=== PATIENT | male | born 1975 | race Caucasian/White ===

== ENCOUNTER → 2016-08-24 | Outpatient (CLI) | payer SELFPAY ==
[2016-08-24 17:45] LABS: ABSOLUTE EOSINOPHILS # (AUTO) 0.2 10^3/uL (0.0-0.6); ABSOLUTE LYMPHOCYTES (AUTO) 2.2 10^3/uL (0.5-4.7); ABSOLUTE MONOCYTES (AUTO) 0.3 10^3/uL (0.1-1.4); ABSOLUTE NEUT (AUTO) 3.9 10^3/uL (1.7-8.2); BASOPHILS % (AUTO) 0.6 % (0-2); EOSINOPHILS % (AUTO) 2.5 % (0-6); HEMATOCRIT 43.2 % (37.9-51.0); HEMOGLOBIN 14.7 g/dL (13.5-17.0); HGB HCT DIFFERENCE 0.9; LYMPHOCYTES % (AUTO) 33.7 % (13-45); MEAN CORPUSCULAR HGB CONC 34.1 g/dL (32.0-36.0); MEAN CORPUSCULAR VOLUME 91 fl (80-97); MONOCYTES % (AUTO) 4.6 % (3-13); RED BLOOD COUNT 4.75 10^6/uL (4.35-5.55); SEGMENTED NEUTROPHILS % (AUTO) 58.6 % (42-78); WHITE BLOOD COUNT 6.6 10^3/uL (4.0-10.5)
[2016-08-24 17:58] LABS: APPEARANCE,URINE CLEAR; BILIRUBIN,URINE NEGATIVE (NEGATIVE); GLUCOSE, URINE NEGATIVE (NEGATIVE); KETONES,URINE NEGATIVE (NEGATIVE); LEUKOCYTE ESTERASE,URINE NEGATIVE (NEGATIVE); NITRITE,URINE NEGATIVE (NEGATIVE); PROTEIN,URINE NEGATIVE (NEGATIVE); URINE SPECIFIC GRAVITY 1.014; UROBILINOGEN,URINE NEGATIVE mg/dL (<2.0)
[2016-08-24 17:59] LABS: BACTERIA,URINE TRACE /HPF; RBC,URINE NONE SEEN /HPF; WBC,URINE NONE SEEN /HPF
[2016-08-24 18:12] LABS: ALANINE AMINOTRANSFERASE 23 U/L (21-72); ALBUMIN 4.4 g/dL (3.5-5.0); ALKALINE PHOSPHATASE 62 U/L (38-126); ANION GAP 12 (5-19); ASPARTATE AMINO TRANSFERASE 17 U/L (17-59); BILIRUBIN,DIRECT 0.3 mg/dL (0.0-0.4); BILIRUBIN,TOTAL 0.6 mg/dL (0.2-1.3); BLOOD UREA NITROGEN 7 mg/dL (7-20); CALCIUM 9.6 mg/dL (8.4-10.2); CARBON DIOXIDE 27 mmol/L (22-30); CHLORIDE 105 mmol/L (98-107); GLUCOSE 85 mg/dL (75-110); POTASSIUM 3.8 mmol/L (3.6-5.0); SODIUM 144.1 mmol/L (137-145); TOTAL PROTEIN 7.2 g/dL (6.3-8.2)
== END ==
LOC: OD 16:28
PROVIDERS: ATTEND Surgery
DX: R19.7 Diarrhea, unspecified (principal); R10.31 Right lower quadrant pain; R30.9 Painful micturition, unspecified
CPT/HCPCS: 36415; 80053; 81001; 84550; 85025

== ENCOUNTER 2016-10-06 11:54 | Emergency (ER) | payer SELFPAY ==
[2016-10-06 12:02] VITALS: BP 140/87
--- NOTE | 2016-10-06 13:11 | ER Document Report ---
HPI - HPI Patient complains to provider of: bilat thigh pain, swelling Onset: Other - 1 month Onset/Duration: Persistent Quality of pain: Achy Pain Level: 4 Context: Patient presents complaining of bilateral thigh muscle tenderness and swelling for the past month. Patient states that he fell out of his vehicle while it was parked in his yard. Patient states since then he has had thigh muscle pain and swelling. Patient states that he lives in [facility] and has attempted to use the free clinics in that [facility] but has been told to follow-up with primary doctor or an orthopedic doctor for this complaint and states that he has not gotten anywhere as he does not currently have any insurance. Patient denies any new injury. Patient states that he is homeless but he does have a vehicle and wanted to come here to see if there is anything that can be done about his thigh muscle pain. Associated Symptoms: Other - Bilateral thigh muscle pain and swelling. denies: Chest pain, Nonproductive cough, Productive cough, Fever Exacerbated by: Denies Relieved by: Denies Similar symptoms previously: No Recently seen / treated by doctor: Yes - ROS ROS below otherwise negative: Yes Systems Reviewed and Negative: Yes All other systems reviewed and negative - CONSTITUTIONAL Constitutional: DENIES: Fever, Chills - NEURO Neurology: DENIES: Weakness - CARDIOVASCULAR Cardiovascular: DENIES: Chest pain - RESPIRATORY Respiratory: DENIES: Trouble Breathing, Coughing - MUSCULOSKELETAL Musculoskeletal: REPORTS: Extremity pain, Swelling - DERM Skin Color: Normal Skin Problems: None Past Medical History - General Information source: Patient - Social History Smoking Status: Current Every Day Smoker Frequency of alcohol use: None Drug Abuse: Marijuana Occupation: None Lives with: Homeless Family History: Reviewed & Not Pertinent Renal/ Medical History: Denies: Hx Peritoneal Dialysis Musculoskeltal Medical History: Reports Other - Chronic back pain Past Surgical History: Reports: Hx Orthopedic Surgery - Immunizations Hx Diphtheria, Pertussis, Tetanus Vaccination: Yes Vertical Provider Document - CONSTITUTIONAL Agree With Documented VS: Yes Exam Limitations: No Limitations General Appearance: WD/WN, No Apparent Distress - INFECTION CONTROL TRAVEL OUTSIDE OF THE [place] IN LAST 30 DAYS: No - HEENT HEENT: Atraumatic, Normocephalic - NECK Neck: Normal Inspection, Supple - RESPIRATORY Respiratory: Breath Sounds Normal, No Respiratory Distress, Chest Non-Tender O2 Sat by Pulse Oximetry: 99 - CARDIOVASCULAR Cardiovascular: Regular Rate, Regular Rhythm, No Murmur - GI/ABDOMEN Gastrointestinal: Abdomen Soft, Abdomen Non-Tender - BACK Back: Normal Inspection - MUSCULOSKELETAL/EXTREMETIES Musculoskeletal/Extremeties: MAEW, FROM, No Edema Notes: Patient without any objective signs of swelling or inflammation to bilateral thighs - NEURO Level of Consciousness: Awake, Alert, Appropriate Motor/Sensory: No Motor Deficit - DERM Integumentary: Warm, Dry Course - Vital Signs Vital signs: Temp Pulse Resp BP Pulse Ox 97.5 F 63 16 140/87 H 99 10/06/16 12:01 10/06/16 12:01 10/06/16 12:01 10/06/16 12:01 10/06/16 12:01 - Laboratory Result Diagrams: 10/06/16 13:27 10/06/16 13:27 Laboratory results interpreted by me: 10/06/16 14:29 Labs- Entire Visit 10/06/16 10/06/16 13:27 13:27 WBC 7.2 RBC 4.62 Hgb 14.8 Hct 42.7 MCV 92 MCH 32.0 MCHC 34.7 RDW 13.0 Plt Count 199 Seg Neutrophils % 63.2 Lymphocytes % 28.4 Monocytes % 4.9 Eosinophils % 2.8 Basophils % 0.7 Absolute Neutrophils 4.5 Absolute Lymphocytes 2.0 Absolute Monocytes 0.4 Absolute Eosinophils 0.2 Absolute Basophils 0.1 Sodium 143.7 Potassium 3.9 Chloride 107 Carbon Dioxide 25 Anion Gap 12 BUN 13 Creatinine 0.81 Est GFR ( Amer) > 60 Est GFR (Non-Af Amer) > 60 Glucose 88 Calcium 9.5 Total Bilirubin 0.4 Direct Bilirubin 0.3 Indirect Bilirubin Not Reportable Neonat Total Bilirubin Not Reportable AST 16 L ALT 30 Alkaline Phosphatase 65 Creatine Kinase 102 Total Protein 7.2 Albumin 4.3 10/06/16 21:41 Discharge - Discharge Clinical Impression: Elevated blood pressure reading, Myalgia Condition: Stable Disposition: HOME, SELF-CARE Instructions: Myalagia (Muscle Pain) ([facility]) Additional Instructions: Return immediately for any new or worsening symptoms Followup with your primary care provider, call tomorrow to make a followup appointment Prescriptions: Naproxen [Naprosyn 250 Nmg Tablet] 1 tab PO BID #14 tablet Forms: Elevated Blood Pressure Referrals: [facility] [Provider Group] - Follow up as needed [facility] [Provider Group] - Follow up as needed
[2016-10-06 13:41] LABS: ABSOLUTE BASOPHILS # (AUTO) 0.1 10^3/uL (0.0-0.2); ABSOLUTE EOSINOPHILS # (AUTO) 0.2 10^3/uL (0.0-0.6); ABSOLUTE MONOCYTES (AUTO) 0.4 10^3/uL (0.1-1.4); ABSOLUTE NEUT (AUTO) 4.5 10^3/uL (1.7-8.2); BASOPHILS % (AUTO) 0.7 % (0-2); EOSINOPHILS % (AUTO) 2.8 % (0-6); HEMATOCRIT 42.7 % (37.9-51.0); HEMOGLOBIN 14.8 g/dL (13.5-17.0); HGB HCT DIFFERENCE 1.7; LYMPHOCYTES % (AUTO) 28.4 % (13-45); MEAN CORPUSCULAR HGB CONC 34.7 g/dL (32.0-36.0); MEAN CORPUSCULAR VOLUME 92 fl (80-97); MONOCYTES % (AUTO) 4.9 % (3-13); RED BLOOD COUNT 4.62 10^6/uL (4.35-5.55); SEGMENTED NEUTROPHILS % (AUTO) 63.2 % (42-78); WHITE BLOOD COUNT 7.2 10^3/uL (4.0-10.5)
[2016-10-06 14:10] LABS: ALANINE AMINOTRANSFERASE 30 U/L (21-72); ALBUMIN 4.3 g/dL (3.5-5.0); ALKALINE PHOSPHATASE 65 U/L (38-126); ANION GAP 12 (5-19); ASPARTATE AMINO TRANSFERASE 16 U/L (17-59); BILIRUBIN,DIRECT 0.3 mg/dL (0.0-0.4); BILIRUBIN,TOTAL 0.4 mg/dL (0.2-1.3); BLOOD UREA NITROGEN 13 mg/dL (7-20); CALCIUM 9.5 mg/dL (8.4-10.2); CARBON DIOXIDE 25 mmol/L (22-30); CHLORIDE 107 mmol/L (98-107); CREATINE KINASE 102 U/L (55-170); CREATININE RESULT 0.81 mg/dL (0.52-1.25); GLUCOSE 88 mg/dL (75-110); POTASSIUM 3.9 mmol/L (3.6-5.0); SODIUM 143.7 mmol/L (137-145); TOTAL PROTEIN 7.2 g/dL (6.3-8.2)
== END 2016-10-06 14:48 | disposition home or self-care (01) ==
LOC: ER 11:54
DX: R03.0 Elevated blood-pressure reading, without diagnosis of hypertension (principal); M79.1 Myalgia; F17.200 Nicotine dependence, unspecified, uncomplicated; G89.29 Other chronic pain; M54.9 Dorsalgia, unspecified
CPT/HCPCS: 36415; 80053; 82550; 85025; 99283

== ENCOUNTER 2017-08-21 00:18 | Emergency (ER) | payer SELFPAY ==
[2017-08-21 00:33] VITALS: BP 143/102
--- NOTE | 2017-08-21 01:40 | RADIOLOGY REPORT (SQ) ---
EXAM DESCRIPTION: XR WRIST 3 OR MORE VIEWS BILATERAL CLINICAL HISTORY: 41 years Male, twisted right and left wrist while in handcuffs COMPARISON: None. Findings: Mild osteoarthritis. Likely benign 0.8 cm low-attenuation lesion of the right capitate may indicate an enchondroma.. Bones, joints, and soft tissues of the XR WRIST 6 VIEWS BILATERAL appear otherwise intact. IMPRESSION: No acute findings.
[2017-08-21] MEDS ORDERED: IBUPROFEN 600 MG TABLET PO ONE (02:24)
--- NOTE | 2017-08-21 02:24 | ER Document Report ---
ED General - General Chief Complaint: Wrist Pain Stated Complaint: WRIST PAIN Time Seen by Provider: 08/21/17 01:06 Notes: Patient is a 41 year old male who presents in the custody of [facility] with concerns of bilateral wrist pain. He reports that this started after handcuffs were placed tightly. He reports a throbbing, constant, aching pain to the bilateral wrists. He states any movement of the wrist worsens the pain. He has not tried anything for relief prior to arrival. No history of similar injuries in the past. He denies any additional injuries were sustained today. TRAVEL OUTSIDE OF THE [place] IN LAST 30 DAYS: No - Related Data Allergies/Adverse Reactions: steroids Allergy (Uncoded 10/06/16 12:02) hives/itching Past Medical History - General Information source: Patient - Social History Smoking Status: Never Smoker Frequency of alcohol use: Occasional Drug Abuse: None Lives with: Other - Skilled Nursing Family History: Reviewed & Not Pertinent Patient has suicidal ideation: No Patient has homicidal ideation: No Renal/ Medical History: Denies: Hx Peritoneal Dialysis Past Surgical History: Reports: Hx Orthopedic Surgery - Immunizations Hx Diphtheria, Pertussis, Tetanus Vaccination: Yes Review of Systems - Review of Systems Notes: Constitutional: Negative for fever. Eyes: Negative for visual changes. ENT: Negative for facial injury Cardiovascular: Negative for chest injury. Respiratory: Negative for shortness of breath. Gastrointestinal: Negative for abdominal injury. Genitourinary: Negative for genital injury Musculoskeletal: Positive for bilateral wrist pain Skin: Positive for soft tissue injury to the bilateral wrists Neurological: Negative for head injury. Physical Exam - Vital signs Vitals: Temp Pulse Resp BP Pulse Ox 97.5 F 108 H 20 143/102 H 96 08/21/17 00:31 08/21/17 00:31 08/21/17 00:31 08/21/17 00:31 08/21/17 00:31 Interpretation: Tachycardic Notes: PHYSICAL EXAMINATION: GENERAL: Well-appearing, well-nourished and in no acute distress. HEAD: Atraumatic, normocephalic. EYES: sclera anicteric, conjunctiva are normal. ENT: Moist mucous membranes. NECK: Normal range of motion LUNGS: Normal work of breathing HEART: 2+ radial pulses bilaterally. EXTREMITIES: Full flexion extension at the wrists bilaterally NEUROLOGICAL: RMU motor and sensory distribution is intact bilaterally. PSYCH: Normal mood, normal affect. SKIN: Warm, Dry, normal turgor, imprints of handcuffs over the bilateral wrists with trace ecchymosis to the areas. No skin breakdown. Course - Re-evaluation Re-evalutation: 08/21/17 03:28 Patient presents with soft tissue injuries to the bilateral wrists from handcuffs placement. X-rays without any evidence of bony injuries. There is no limited range of motion the area. No focal neurologic deficit is RMU motor distribution is intact against resistance as and RMU sensory distribution is completely normal. There are no additional injuries or concerns today. At this time will discharge with return precautions and follow-up recommendations. Verbal discharge instructions given a the bedside and opportunity for questions given. Medication warnings reviewed. Patient is in agreement with this plan and has verbalized understanding of return precautions and the need for primary care follow-up in the next 24-72 hours. - Vital Signs Vital signs: Temp Pulse Resp BP Pulse Ox 97.5 F 108 H 20 143/102 H 96 08/21/17 00:31 08/21/17 00:31 08/21/17 00:31 08/21/17 00:31 08/21/17 00:31 - Diagnostic Test Radiology reviewed: Image reviewed, Reports reviewed Radiology results interpreted by me: 08/21/17 03:29 Bilateral wrist x-rays: No acute fractures or dislocations Discharge - Discharge Clinical Impression: Wrist pain, acute Qualifiers: Laterality: unspecified laterality Qualified Code(s): M25.539 - Pain in unspecified wrist Condition: Good Disposition: HOME, SELF-CARE Additional Instructions: Your x-rays are normal. There is no significant injury from being handcuffed today. You may take Tylenol or ibuprofen as needed for pain. Return for any additional concerns you may have.
[2017-08-21] MEDS ORDERED: ACETAMINOPHEN 325 MG TABLET PO ONE (02:27)
== END 2017-08-21 02:30 | disposition home or self-care (01) ==
LOC: ER 00:18
DX: S60.212A Contusion of left wrist, initial encounter (principal); S60.211A Contusion of right wrist, initial encounter; M25.531 Pain in right wrist; M25.532 Pain in left wrist; W49.09XA Other specified item causing external constriction, initial encounter; Z88.8 Allergy status to other drugs, medicaments and biological substances
CPT/HCPCS: 99283

== ENCOUNTER 2018-06-06 05:57 | Emergency (ER) | payer SELFPAY ==
[2018-06-06 06:17] VITALS: BP 136/80
--- NOTE | 2018-06-06 06:50 | ER Document Report ---
ED General - General Chief Complaint: Hand Pain Stated Complaint: HAND/ARM PAIN Time Seen by Provider: 06/06/18 06:33 TRAVEL OUTSIDE OF THE [place] IN LAST 30 DAYS: No - HPI Notes: Patient presents to the emergency department for evaluation of right upper extremity pain. Pain began after an incident with the police in December. He was arrested, right hand was forced behind his back for handcuffs. He states he then fell. He has had pain from his right shoulder to his right fingertip since then. He states that a few days ago he was reaching across his van. He went to move the passenger seat and had sudden onset of more significant pain and paresthesias. He states is throughout the entire arm but seems to focus on the forearm and wrist area. He denies any neck or back pain. He states that the pain makes him feel weak, but he denies any murali weakness. Has not been evaluated for this as of yet. - Related Data Allergies/Adverse Reactions: steroids Allergy (Uncoded 10/06/16 12:02) hives/itching Past Medical History - General Information source: Patient - Social History Smoking Status: Current Every Day Smoker Chew tobacco use (# tins/day): No Frequency of alcohol use: None Drug Abuse: None Family History: Reviewed & Not Pertinent Patient has suicidal ideation: No Patient has homicidal ideation: No Renal/ Medical History: Denies: Hx Peritoneal Dialysis Past Surgical History: Reports: Hx Orthopedic Surgery - Immunizations Hx Diphtheria, Pertussis, Tetanus Vaccination: Yes Review of Systems - Review of Systems Constitutional: No symptoms reported EENT: No symptoms reported Cardiovascular: No symptoms reported Respiratory: No symptoms reported Gastrointestinal: No symptoms reported Genitourinary: No symptoms reported Musculoskeletal: See HPI Skin: No symptoms reported Neurological/Psychological: See HPI Physical Exam - Vital signs Vitals: Temp Pulse Resp BP Pulse Ox 97.3 F 81 16 136/80 H 97 06/06/18 06:04 06/06/18 06:04 06/06/18 06:04 06/06/18 06:04 06/06/18 06:04 - Notes Notes: Patient is awake and alert, no acute distress. Area of examination is limited to the chief complaint. Examination of the right upper extremity yields no obvious deformity. He has full range of motion of the shoulder, elbow, wrist, fingers, thumb. Capillary refill is brisk, radial pulses 2+. Negative apprehension, negative Bia's. 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 No bony tenderness about the shoulder girdle, humerus, radius, ulna. No anatomical snuffbox tenderness to palpation. Course - Re-evaluation Re-evalutation: 06/06/18 08:14 Patient presents to the emergency department for evaluation of right upper extremity pain. He complains of some paresthesias as well. Certainly some sort of neuropathy, either radicular or muscular in nature, could be responsible for his symptoms. He does not have any neck pain or tenderness. Plain imaging, is actually requested by the patient, was unremarkable. Unfortunately the patient does claim an allergy to all steroids. We will send him home with prescription strength anti-inflammatories as well as a mild muscle relaxer. He is to follow- up with primary care, return to the emergency department with worsening or new concerning symptoms of any sort. - Vital Signs Vital signs: Temp Pulse Resp BP Pulse Ox 97.3 F 81 16 136/80 H 97 06/06/18 06:04 06/06/18 06:04 06/06/18 06:04 06/06/18 06:04 06/06/18 06:04 Discharge - Discharge Clinical Impression: Pain of right upper extremity, Arm paresthesia, right Instructions: Arm Pain, Nonspecific ([facility]) Additional Instructions: No clear cause was found for your pain and numbness today. Take medications as prescribed, with food. Follow-up with primary care in 1-2 weeks. Return to the emergency department with worsening or new concerning symptoms of any sort.
--- NOTE | 2018-06-06 07:30 | RADIOLOGY REPORT (SQ) ---
EXAM DESCRIPTION: XR FOREARM 2 VIEWS COMPLETED DATE/TME: 06/06/2018 06:39 CLINICAL HISTORY: 42 years, Male, injury months ago, pain COMPARISON: None. FINDINGS: 2 views of the right forearm. No acute fracture or dislocation. Normal osseous mineralization. IMPRESSION: 1. No acute fracture. copyright 2010 [id number]- All Rights Reserved
--- NOTE | 2018-06-06 07:30 | RADIOLOGY REPORT (SQ) ---
EXAM DESCRIPTION: XR WRIST 3 OR MORE VIEWS BILATERAL COMPLETED DATE/TME: 06/06/2018 06:39 CLINICAL HISTORY: 42 years, Male, injury months ago, pain COMPARISON: 08/21/2017 FINDINGS: 3 views of the right wrist. No acute fracture or dislocation. Normal osseous mineralization. Well-corticated ossific fragment dorsal aspect of the wrist is stable. IMPRESSION: 1. No acute fracture. copyright 2010 [employer]- All Rights Reserved
--- NOTE | 2018-06-06 07:31 | RADIOLOGY REPORT (SQ) ---
EXAM DESCRIPTION: XR SHOULDER 2 OR MORE VIEWS COMPLETED DATE/TME: 06/06/2018 06:39 CLINICAL HISTORY: 42 years, Male, injury months ago, pain COMPARISON: None. FINDINGS: 3 views of the right shoulder. No acute fracture or dislocation. Normal osseous mineralization. No acute abnormalities of the right hemithorax. IMPRESSION: 1. No acute fracture or dislocation. copyright 2010 [employer]- All Rights Reserved
== END 2018-06-06 08:34 | disposition home or self-care (01) ==
LOC: ER 05:57
DX: R20.2 Paresthesia of skin (principal); M79.601 Pain in right arm; F17.200 Nicotine dependence, unspecified, uncomplicated
CPT/HCPCS: 99283